=== PATIENT | male | born 1965 | race Caucasian/White ===

== ENCOUNTER → 2019-08-29 | Outpatient (CLI) | payer BC ==
[~2019-08-29] MED LIST: ABCT PO; ASP81TEC PO; DICY10CA26 PO; FEXO1TAB42 PO; FLT05NA16 NSEACH; GABA300C PO; LVT.025T PO
--- NOTE | 2019-08-29 08:41 | Diagnostic Imaging Report ---
PROCEDURE: MRI lumbar spine without contrast. TECHNIQUE: Multiplanar, multisequence MRI of the lumbar spine was performed without contrast. INDICATION: Chronic back pain. Prior surgery in 2016. COMPARISON: None. FINDINGS: 5 lumbar type vertebral bodies are visualized with the last well-formed disc space designated L5-S1. No acute fracture or dislocation is seen in the lumbar spine. There is grade 1 retrolisthesis of L5 on S1. Laminectomy changes are noted at L4. Vertebral body heights are well-maintained. Endplate degenerative changes are present at the L4-L5 and L5-S1 levels. The conus terminates at the L1 level. No masses are seen associated with the conus or nerve roots of the cauda equina. No epidural collections are identified. Multilevel degenerative changes are seen in the lumbar spine with disc bulges, facet hypertrophy, and buckling of the ligamentum flavum. T12-L1: No significant spinal canal or foraminal stenosis. L1-L2: No significant spinal canal or foraminal stenosis. L2-L3: Facet hypertrophy and buckling of ligamentum flavum results in no significant spinal canal narrowing and mild bilateral foraminal narrowing. L3-L4: Broad-based disc bulge, facet hypertrophy, and buckling of ligamentum flavum results in no significant spinal canal narrowing and moderate bilateral foraminal stenosis. L4-L5: Disc desiccation with broad-based disc bulge, facet hypertrophy, and buckling of the ligamentum flavum results in no significant spinal canal narrowing and mild to moderate bilateral foraminal narrowing. L5-S1: Disc desiccation with broad-based disc bulge, facet hypertrophy, and buckling of the ligamentum flavum results in no significant spinal canal stenosis and moderate bilateral foraminal stenosis. Paravertebral soft tissues are unremarkable. IMPRESSION: 1. No acute fracture or dislocation in the lumbar spine. 2. Multilevel degenerative changes in the lumbar spine, greatest at L3-L4, L4-L5 and L5-S1. 3. Grade 1 retrolisthesis of L5 on S1 with endplate degenerative changes at L4-L5 and L5-S1. Dictated by: Dictated on workstation # [id number]
== END ==
LOC: RAD 07:15
PROVIDERS: ATTEND Nurse Practitioner Family
DX: M47.817 Spondylosis without myelopathy or radiculopathy, lumbosacral region (principal); M43.17 Spondylolisthesis, lumbosacral region; Z98.890 Other specified postprocedural states
CPT/HCPCS: 72148